=== PATIENT | male | born 2000 | race Two or more races ===

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

== ENCOUNTER 2022-03-14 10:49 | Emergency (ER) | payer SELFPAY ==
[~2022-03-14] VITALS: Ht 175.3 cm; Wt 72.6 kg
[2022-03-14] MEDS ORDERED: SODIUM CHLORIDE 0.9% 1,000 ML IV ONE (11:15)
[2022-03-14 11:33] LABS: Basophils # (auto) 0 10 ^3/uL (0-0.2); Basophils % (auto) 0.6 % (0.0-2.0); Eosinophils # (auto) 0 10 ^3/uL (0-0.8); Eosinophils % (auto) 0.6 % (0.0-7.0); Hematocrit 50.4 % (41.0-53.0); Hemoglobin 16.5 g/dL (13.5-17.5); Lymphocytes # (auto) 1.3 10 ^3/uL (0.4-5.4); Lymphocytes % (auto) 28.1 % (10.0-50.0); Mean Corpuscular Hemoglobin 28.3 pg (28.0-32.0); Mean Corpuscular Hgb Conc. 32.7 g/dL (32.0-36.0); Mean Corpuscular Volume 86.5 fL (80.0-100.0); Monocytes # (auto) 0.2 10 ^3/uL (0-1.3); Monocytes % (auto) 5.3 % (0.0-12.0); Neutrophils % (auto) 65.4 % (37.0-80.0); Nucleated Red Blood Cells % 0.1 %; Red Blood Cells 5.83 10^6/uL (4.5-5.90); Red Cell Distribution Width 13.6 % (11.8-14.3); White Blood Cell 4.5 10^3/uL (4.4-10.8)
[2022-03-14 11:50] LABS: Albumin 4.4 g/dL (3.4-5.0); BUN/Creatinine Ratio 17.1; Calcium 9.5 mg/dL (8.5-10.1); Potassium 3.9 mmol/L (3.5-5.1)
[2022-03-14 11:51] LABS: Urine Bacteria NONE SEEN /hpf (None Seen); Urine Blood Negative /uL (Negative); Urine Specific Gravity 1.005 (1.001-1.035); Urine WBC <1 /hpf (0 - 3)
[2022-03-14 11:52] LABS: Bilirubin, Total 0.6 mg/dL (0.2-1.0); Total Protein 7.7 g/dL (6.4-8.2)
[2022-03-14] MEDS ORDERED: PRED20TA2 PO (12:17)
[2022-03-14] MEDS ORDERED: LEVO-28 PO (13:13)
[2022-03-14 14:21] VITALS: BP 138/72
== END 2022-03-14 14:22 | disposition home or self-care (01) ==
LOC: ER 10:49
DX: R55 Syncope and collapse (principal); N39.0 Urinary tract infection, site not specified; J45.909 Unspecified asthma, uncomplicated
CPT/HCPCS: 36415; 70450; 80053; 81001; 84484; 85025; 93005; 96360; 99285; J7030

== ENCOUNTER 2022-03-22 14:20 | Emergency (ER) | payer SELFPAY ==
[~2022-03-22] VITALS: Ht 175.3 cm; Wt 70.5 kg
[~2022-03-22 14:20] MED LIST: LEVO-28 PO; PRED20TA2 PO
[2022-03-22] MEDS ORDERED: IBUP600T28 PO (17:22)
[2022-03-22 18:16] VITALS: BP 128/81
== END 2022-03-22 18:18 | disposition home or self-care (01) ==
LOC: ER 14:20
DX: S60.221A Contusion of right hand, initial encounter (principal); J45.909 Unspecified asthma, uncomplicated; X50.1XXA Overexertion from prolonged static or awkward postures, initial encounter; Y93.89 Activity, other specified; Y92.89 Other specified places as the place of occurrence of the external cause; Y99.8 Other external cause status
CPT/HCPCS: 73130

== ENCOUNTER 2022-06-07 00:02 | Emergency (ER) | payer SELFPAY ==
[~2022-06-07] VITALS: Ht 175.3 cm; Wt 70.5 kg
[~2022-06-07 00:02] MED LIST changes: +IBUP600T28 PO
[2022-06-07 00:09] VITALS: BP 131/80
== END 2022-06-07 02:51 | disposition left against medical advice (07) ==
LOC: ER 00:02
DX: H92.02 Otalgia, left ear (principal); Z53.21 Procedure and treatment not carried out due to patient leaving prior to being seen by health care provider

== ENCOUNTER 2023-09-16 23:09 | Emergency (ER) | payer MEDICAID, OTHER ==
[~2023-09-16] VITALS: Ht 177.8 cm; Wt 69.4 kg
[~2023-09-16 23:09] MED LIST changes: +IBUP1TAB5 PO; -IBUP600T28 PO; -LEVO-28 PO; +LEVO500T91 PO
[2023-09-16 23:22] VITALS: BP 134/73; PULSE 88; RESP 16; TEMP 98.2; O2SAT 96
[2023-09-17] MEDS: IBUPROFEN 600 MG TAB PO ONE (02:49)
== END 2023-09-17 02:24 | disposition home or self-care (01) ==
LOC: ER 23:09
DX: S63.654A Sprain of metacarpophalangeal joint of right ring finger, initial encounter (principal); S63.656A Sprain of metacarpophalangeal joint of right little finger, initial encounter; J45.909 Unspecified asthma, uncomplicated; Z79.1 Long term (current) use of non-steroidal anti-inflammatories (NSAID); Z79.52 Long term (current) use of systemic steroids; W18.39XA Other fall on same level, initial encounter; Y93.61 Activity, american tackle football; Y92.89 Other specified places as the place of occurrence of the external cause; Y99.8 Other external cause status
CPT/HCPCS: 73110; 73130

== ENCOUNTER 2023-10-09 19:59 | Emergency (ER) | payer OTHER ==
[~2023-10-09] VITALS: Ht 25.4 cm; Wt 70.5 kg
[2023-10-09 20:07] VITALS: BP 120/77; PULSE 83; RESP 24; O2SAT 95
== END 2023-10-09 22:30 | disposition home or self-care (01) ==
LOC: EDBD 19:59 → ER 19:59
DX: F41.0 Panic disorder [episodic paroxysmal anxiety] (principal); J45.909 Unspecified asthma, uncomplicated